=== PATIENT | female | born 1975 | race African-American/Black ===

== ENCOUNTER 2020-05-10 10:26 | Emergency (ER) | payer OTHER ==
[~2020-05-10] VITALS: Ht 160 cm; Wt 119.0 kg
[2020-05-10 12:50] VITALS: BP 150/78
== END 2020-05-10 12:50 | disposition home or self-care (01) ==
LOC: ER 10:43
DX: L03.032 Cellulitis of left toe (principal); I10 Essential (primary) hypertension; Z98.890 Other specified postprocedural states
CPT/HCPCS: 99281; 99283